=== PATIENT | male | born 1950 | race Caucasian/White ===

== ENCOUNTER → 2016-11-22 | Outpatient (REF) | payer OTHER ==
[~2016-11-22] MED LIST: ASPI1TAB PO; BISO5TAB5 PO; CADU5TAB2 PO; CETI10TA PO; FLUTISP
== END ==
LOC: M LAB REF 12:17
PROVIDERS: ATTEND Otolaryngology
DX: H65.22 Chronic serous otitis media, left ear (principal)

== ENCOUNTER 2017-10-30 06:06 | Day surgery (SDC) | payer OTHER ==
[2017-10-30] MEDS ORDERED: LR 1,000 ML IV ×2 (06:30→12:00)
[2017-10-30] MEDS ORDERED: LIDOCAINE 2% INJ 100 MG/5 ML SDV (FOR ANES.) As Ordered (07:13)
[2017-10-30] MEDS ORDERED: PROPOFOL 200 MG/20 ML VIAL As Ordered (07:13)
[2017-10-30] MEDS ORDERED: fentaNYL 250 MCG/5 ML INJECTION (J3010) As Ordered ×2 (07:14→08:11)
[2017-10-30] MEDS ORDERED: MIDAZOLAM INJ 2 MG/2 ML VIAL (J2250) As Ordered (07:15)
[2017-10-30] MEDS ORDERED: ROCURONIUM BROMIDE 50 MG/5 ML VIAL As Ordered (07:30)
[2017-10-30] MEDS ORDERED: PHENYLephrine HCL 500 MCG/5 ML (100MCG/ML) SYRINGE (J2370) As Ordered (08:12)
[2017-10-30] MEDS ORDERED: ePHEDrine SULFATE 25 MG/5 ML(5MG/ML) SYRINGE As Ordered (08:42)
[2017-10-30] MEDS: CIPRODEX OTIC SUSP 7.5ML As Ordered (08:43)
[2017-10-30] MEDS: EPINEPHrine 1MG/ML INJ 30ML MD-VIAL As Ordered (08:44)
[2017-10-30] MEDS ORDERED: ONDANSETRON 4MG/2ML VIAL (J2405) As Ordered (09:53)
[2017-10-30] MEDS ORDERED: METOCLOPRAMIDE INJ 10MG/2ML VIAL (J2765) As Ordered (09:53)
[2017-10-30] MEDS ORDERED: dexameTHASONE 4 MG/ML 1ML VIAL (J1100) As Ordered ×2 (09:53)
[2017-10-30] MEDS ORDERED: KETOROLAC 60 MG/2 ML VIAL (J1885) As Ordered (09:53)
[2017-10-30] MEDS ORDERED: SUGAMMADEX SODIUM 500 MG/5 ML VIAL (BRIDION) As Ordered (11:21)
[2017-10-30] MEDS: LIDOCAINE W/EPINEPHRINE 1% 20ML VIAL As Ordered (11:30)
[2017-10-30] MEDS: LR 1,000 ML IV (11:41)
[2017-10-30] MEDS ORDERED: fentaNYL 100 MCG/2 ML INJECTION (J3010) IV (12:00)
[2017-10-30] MEDS ORDERED: PERCOCET 5MG/325MG TAB PO (12:00)
[2017-10-30] MEDS ORDERED: MORPHINE 10 MG/ML 1ML VIAL (J2270) IV (12:00)
[2017-10-30] MEDS ORDERED: ACETAMINOPH W/CODEINE #3 TAB UD PO (12:00)
[2017-10-30] MEDS: ONDANSETRON 4MG/2ML VIAL (J2405) IV (12:10)
== END 2017-10-30 16:30 | disposition home or self-care (01) ==
LOC: M SDC 06:06
DX: H65.22 Chronic serous otitis media, left ear (principal); H72.92 Unspecified perforation of tympanic membrane, left ear; H71.11 Cholesteatoma of tympanum, right ear; I10 Essential (primary) hypertension; K21.9 Gastro-esophageal reflux disease without esophagitis; R06.02 Shortness of breath; M12.9 Arthropathy, unspecified; M54.5 Low back pain; R06.83 Snoring; Z88.0 Allergy status to penicillin; Z79.899 Other long term (current) drug therapy; Z79.82 Long term (current) use of aspirin; Z87.891 Personal history of nicotine dependence
CPT/HCPCS: 69505

== ENCOUNTER → 2019-11-03 | Outpatient (CLI) | payer OTHER ==
[~2019-11-03] MED LIST changes: -ASPI1TAB PO; +ASPI81TA26 PO; +BISO5TAB14 PO; -BISO5TAB5 PO; +FLUT50SP12; -FLUTISP
--- NOTE | 2019-11-19 08:41 | REP ---
NONCONTRAST CHEST CT CLINICAL: Solitary pulmonary nodule. TECHNIQUE: Axial noncontrast images from the thoracic inlet to the upper abdomen with coronal and sagittal reformations. COMPARISON: None. FINDINGS: The bilateral lung corral demonstrate few scattered calcified nodules, as well as few noncalcified densities and nodules measuring up to approximately 3 mm (Image 58). A small 5 mm perifissural density along the right major fissure (Image 65) is also identified. No further consolidation or mass lesion. No effusion. No pneumothorax. Minimal perihilar and infrahilar chronic interstitial changes and bronchiectasis noted. No adenopathy. The tracheobronchial tree is patent. Atherosclerotic changes to the thoracic aorta and coronary arteries noted without aortic aneurysm or cardiomegaly. No pericardial effusion. Limited upper abdomen demonstrates normal bilateral adrenal glands along with 7 cm right upper pole renal cyst. IMPRESSION: * Calcified nodules consistent with prior granulomatous disease. * Few scattered small noncalcified densities measuring up to approximately 3 mm and 5 mm perifissural density are noted. Consider 6-9 month followup examination as no prior examinations are available for comparison. MTDD
== END ==
LOC: M RAD 14:43
PROVIDERS: ATTEND Physician Assistant
DX: R91.8 Other nonspecific abnormal finding of lung field (principal)

== ENCOUNTER → 2019-11-17 | Outpatient (CLI) | payer OTHER ==
[~2019-11-17] MED LIST changes: +METHACHOLINE KIT (J7674) INH ONE
--- NOTE | 2019-11-17 09:31 | PFTRPT ---
Height: 75.00 Inches Weight: 248.00 Lbs BSA: 2.40 Diagnosis: R06.00 DATE: 11/17/2019 ORDERED BY: Andrew Rodriguez QUALITY: Study of excellent technical quality. PROCEDURE: Under protocol, methacholine was administered. Even after a maximal dose of 25 mg, or 189.875 CDUs, no provocation dose was ever achieved. IMPRESSION: Negative methacholine challenge study. MTDD
== END ==
LOC: M CARPUL 08:33
PROVIDERS: ATTEND Physician Assistant
DX: R06.00 Dyspnea, unspecified (principal)
CPT/HCPCS: 94070; J7674

== ENCOUNTER → 2020-06-20 | Outpatient (CLI) | payer MEDICARE, OTHER ==
[~2020-06-20] MED LIST changes: -METHACHOLINE KIT (J7674) INH ONE
--- NOTE | 2020-06-20 15:14 | REP ---
INDICATION: SOLITARY PULMONARY NODULE. COMPARISON: Comparison CT study 03 November 2019.. TECHNIQUE: Helical scanning is acquired. 3 mm axial images are generated. Coronal and sagittal MPR and coronal MIP images are generated. FINDINGS: There is no evidence of pleural or pericardial effusion. Fairly prominent left coronary artery vascular calcification is observed. Normal adrenal glands are seen. There are several accessory splenules in the left upper quadrant. Granulomatous calcifications are seen in the spleen. There are several hepatic and right renal cysts again noted. There is a low-density cystic lesion in the right lobe of the thyroid gland measuring up to 6.1 cm. These findings are all unchanged. In the lung parenchyma, there are bilateral upper lobe granulomatous calcifications. There are hilar and precarinal lymph node a calcific residuals as before. There are 4-5 scattered subcentimeter noncalcified pulmonary nodules bilaterally. These are all unchanged from comparison study of November 03, 2019. No new pulmonary nodule is appreciated. The largest of these is 4 mm. No lung mass or new infiltrate is seen. The thoracic aorta is tortuous as before. No bony destructive lesion is seen. There are multiple scattered benign thoracic spine hemangiomas. These are unchanged as well. IMPRESSION: Old granulomatous calcific changes. Multiple noncalcified subcentimeter pulmonary nodules unchanged from the study done eight months prior. If the patient is considered at risk for pulmonary malignancy, follow-up chest CT study would be indicated in 12 months. <Electronically signed by Paulie Pelletier > 06/20/20 [id number]
== END ==
LOC: M RAD 13:25
PROVIDERS: ATTEND Physician Assistant
DX: R91.1 Solitary pulmonary nodule (principal); R91.8 Other nonspecific abnormal finding of lung field

== ENCOUNTER → 2021-07-03 | Outpatient (CLI) | payer MEDICARE, OTHER | LOC: M PLAIMG 08:19 | PROVIDERS: ATTEND Physician Assistant | DX: R91.8 Other nonspecific abnormal finding of lung field (principal) ==

== ENCOUNTER → 2023-08-15 | Outpatient (REF) | payer MEDICARE, OTHER | LOC: M SFHCDERM 17:58 | PROVIDERS: ATTEND Physician Assistant | DX: L57.0 Actinic keratosis (principal) ==